=== PATIENT | male | born 1970 | race African-American/Black ===

== ENCOUNTER → 2021-02-02 | Day surgery (SDC) | payer OTHER ==
[~2021-02-02] VITALS: Ht 172.7 cm; Wt 104.3 kg
[~2021-02-02] MED LIST: ATORVASTATIN CA80 MG PO; FLONASE ALLER15.8 ML; PRILOSEC20 MG PO; VITAMIN D325 MC4 PO; WELLBUTRIN XL150 MG PO; ZYRTEC10 M3 PO
== END | disposition home or self-care (01) ==
LOC: FAS 01-26 08:00
DX: Z12.11 Encounter for screening for malignant neoplasm of colon (principal); E78.00 Pure hypercholesterolemia, unspecified; K21.9 Gastro-esophageal reflux disease without esophagitis; F43.10 Post-traumatic stress disorder, unspecified; F41.9 Anxiety disorder, unspecified; G47.30 Sleep apnea, unspecified; Z99.89 Dependence on other enabling machines and devices; Z86.010 Personal history of colon polyps; Z80.0 Family history of malignant neoplasm of digestive organs; Z87.891 Personal history of nicotine dependence; Z91.013 Allergy to seafood; Z79.899 Other long term (current) drug therapy
CPT/HCPCS: J2250; J2704; J7120